=== PATIENT | male | born 1985 | race Two or more races ===

== ENCOUNTER 2025-03-02 14:54 | Inpatient (IN) | payer MEDICAID, OTHER ==
[~2025-03-02] VITALS: Ht 170.2 cm; Wt 92.0 kg
--- NOTE | 2025-03-02 15:17 | ED.PDOC ---
History of Present Illness HPI Comments 40-year-old male presents with a chief complaint of abdominal pain x 5 hours with associated urinary retention. Patient states that his pain is localized to his diffuse abdomen, nonradiating, rates his pain a 7/10. Patient also reports that he has been unable to urinate for the past 5 hours. Chief Complaint: Urinary Time Seen by MD: 15:06 Reviewed Notes: Medications, Allergies Allergies: Coded Allergies: NO KNOWN ALLERGIES (Unverified , 03/02/25) Information Source: Patient Mode of Arrival: Ambulatory Severity: Moderate Timing: Hours Duration: Since onset Prehospital treatment: None Past Medical History PAST MEDICAL HISTORY: Denies Surgical History: Denies all surgeries Family History Family History: Reviewed,noncontributory to illness Social History Smoker: Non-Smoker Alcohol: Denies ETOH Use Drugs: Denies Drug Use Lives In: Home Constitutional: denies: chills, diaphoresis, fatigue, fever, malaise, sweats, weakness, others EENTM: denies: blurred vision, double vision, ear bleeding, ear discharge, ear drainage, ear pain, ear ringing, eye pain, eye redness, hearing loss, mouth pain, mouth swelling, nasal discharge, nose bleeding, nose congestion, nose pain, photophobia, tearing, throat pain, throat swelling, voice changes, others Respiratory: denies: cough, hemoptysis, orthopnea, SOB at rest, shortness of breath, SOB with excertion, stridor, wheezing, others Cardiovascular: denies: chest pain, dizzy spells, diaphoresis, Dyspnea on exertion, edema, irregular heart beat, left arm pain, lightheadedness, palpitations, PND, syncope, others Gastrointestinal: reports: abdominal pain; denies: abdomen distended, blood streaked bowels, constipated, diarrhea, dysphagia, difficulty swallowing, hematemesis, melena, nausea, poor appetite, poor fluid intake, rectal bleeding, rectal pain, vomiting, others Genitourinary: reports: others (URINARY RETENTION); denies: burning, dysuria, flank pain, frequency, hematuria, incontinence, penile discharge, penile sore, pain, testicle pain, testicle swelling, urgency Neurological: denies: dizziness, fainting, headache, left sided numbness, left sided weakness, numbness, paresthesia, pre-existing deficit, right sided numbness, right sided weakness, seizure, speech problems, tingling, tremors, w eakness, others Musculoskeletal: denies: back pain, gout, joint pain, joint swelling, muscle pain, muscle stiffness, neck pain, others Integumetry: denies: bruises, change in color, change in hair/nails, dryness, laceration, lesions, lumps, rash, wounds, others Allergic/Immunocompromised: denies: Difficulty Healing, Frequent Infections, Hives, Itching, others Hematologic/Lymphatic: denies: anemia, blood clots, easy bleeding, easy bruising, swollen glands, others Endocrine: denies: excessive hunger, excessive sweating, excessive thirst, excessive urination, flushing, intolerance to cold, intolerance to heat, unexplained weight gain, unexplained weight loss, others Psychiatric: denies: anxiety, bipolar disorder, depression, hopeless, panic disorder, schizophrenia, sleepless, suicidal, others All Other Systems: Reviewed and Negative Physical Exam General Appearance: Moderate Distress, Normal HEENT: Normal ENT Inspection, Pharynx Normal, TMs Normal Neck: Full Range of Motion, Non-Tender, Normal, Normal Inspection Respiratory: Chest Non-Tender, Lungs Clear, No Accessory Muscle Use, No Respiratory Distress, Normal Breath Sounds Cardiovascular: No Edema, No JVD, No Murmur, No Gallop, Normal Peripheral Pulses, Regular Rate/Rhythm Breast Exam: Deferred Gastrointestinal: No Organomegaly, Non Tender, No Pulsatile Mass, Normal Bowel Sounds, Soft Genitalia: Deferred Pelvic: Deferred Rectal: Deferred Extremities: No calf tenderness, Normal capillary refill, Normal inspection, Normal range of motion, Non-tender, No pedal edema Musculoskeletal : Apperance: Normal Neurologic: Alert, senior administrative support II-XII nml as Tested, No Motor Deficits, Normal Affect, Normal Mood, No Sensory Deficits Cerebellar Function: Normal Reflexes: Normal Skin: Dry, Normal Color, Warm Peripheral Pulses: 3+ Radial (R), 3+ Radial (L) Lymphatic: No Adenopathy Was a procedure done? Was a procedure done?: No Differential Dx Considerations may include: Kidney stone Electrolyte imbalance X-Ray, Labs, Meds, VS Vital Signs Date Time Temp Pulse Resp B/P (MAP) Pulse Ox O2 Delivery O2 Flow Rate FiO2 03/02/25 16:02 Room Air* 0 21 03/02/25 16:00 98.3 64 17 144/75 (98) 96 98.3 03/02/25 14:56 98.2 62 16 137/79 100 98.2 Lab Test 03/02/25 15:07 03/02/25 14:56 Range/Units White Blood Count 5.9 4.4-10.8 10^3/uL Red Blood Count 5.37 4.5-5.90 10^6/uL Hemoglobin 16.2 13.5-17.5 g/dL Hematocrit 45.5 41.0-53.0 % Mean Corpuscular Volume 84.8 80.0-100.0 fL Mean Corpuscular Hemoglobin 30.2 28.0-32.0 pg Mean Corpuscular Hemoglobin Concent 35.7 32.0-36.0 g/dL Red Cell Distribution Width 13.1 11.8-14.3 % Platelet Count 249 140-450 10^3/uL Mean Platelet Volume 7.3 6.9-10.8 fL Neutrophils (%) (Auto) 64.7 37.0-80.0 % Lymphocytes (%) (Auto) 26.0 10.0-50.0 % Monocytes (%) (Auto) 7.3 0.0-12.0 % Eosinophils (%) (Auto) 1.7 0.0-7.0 % Basophils (%) (Auto) 0.3 0.0-2.0 % Neutrophils # (Auto) 3.8 1.6-8.6 10 ^3/uL Lymphocytes # (Auto) 1.5 0.4-5.4 10 ^3/uL Monocytes # (Auto) 0.4 0-1.3 10 ^3/uL Eosinophils # (Auto) 0.1 0-0.8 10 ^3/uL Basophils # (Auto) 0 0-0.2 10 ^3/uL Nucleated Red Blood Cells 0.1 % Sodium Level 139 136-145 mmol/L Potassium Level 3.8 3.5-5.1 mmol/L Chloride Level 104 98-107 mmol/L Carbon Dioxide Level 25 20-31 mmol/L Anion Gap 10 5-15 Blood Urea Nitrogen 9 9-23 mg/dL Creatinine 1.17 0.700-1.30 mg/dL Glomerular Filtration Rate Calc 82 >90 mL/min BUN/Creatinine Ratio 7.7 L 10.0-20.0 Serum Glucose 112 H 74-106 mg/dL Calcium Level 9.0 8.7-10.4 mg/dL Urine Opiates Screen Neg NEGATIVE Urine Fentanyl Screen Neg NEGATIVE Urine Barbiturates Screen Neg NEGATIVE Urine Phencyclidine Screen Neg NEGATIVE Urine Amphetamines Screen Neg NEGATIVE Urine Benzodiazepines Screen Neg NEGATIVE Urine Cocaine Screen Neg NEGATIVE Urine Cannabinoids Screen Neg NEGATIVE Current Medications Medications (Trade) Dose Ordered Sig/Falguni Route Start Time Stop Time Status Last Admin Ketorolac Tromethamine (Toradol Injection) 30 mg ONCE ONCE IV 03/02/25 15:30 03/02/25 15:31 DC 03/02/25 16:00 Sodium Chloride 1,000 ml @ 1,000 mls/hr Q1H ONCE IV 03/02/25 15:30 03/02/25 16:29 DC 03/02/25 16:00 Tamsulosin HCl (Flomax) 0.4 mg ONCE ONCE PO 03/02/25 16:30 03/02/25 16:31 DC 03/02/25 16:36 Patient alert. Complaining of flank pain. Vitals stable. Answering questions. Possible kidney stone. Establish intravenous access. Was given fluids. Was given pain medication. CT scan of the abdomen reviewed does show a kidney stone. Explained to the patient. Continue monitoring. Time of 1ST Reevaluation: 15:36 Reevaluation 1ST: Unchanged Patient Education/Counseling: Diagnosis, Treatment, Need For Follow Up Family Education/Counseling: No Family Present SEPSIS Sepsis Screen Date sepsis recognized/suspect: Mar 02, 2025 Time Sepsis recognized/suspect: 1458 Recent Procedure: No On Antibiotic Therapy: No Respiratory Rate >20: No Heart Rate >90: No Temp<36 C (96.8 F) or >38.3 C: No SBP <90 or MAP <65 mmHG: No New Acute Mental Status Change: No Is the patient on CPAP, BIPAP,: No Physician Orders Ct Ab Pel Wo Con-No Oral Or Iv (03/02/25 15:12) Vital Signs Date Time Temp Pulse Resp B/P (MAP) Pulse Ox O2 Delivery O2 Flow Rate FiO2 03/02/25 16:02 Room Air* 0 21 03/02/25 16:00 98.3 64 17 144/75 (98) 96 98.3 03/02/25 14:56 98.2 62 16 137/79 100 98.2 Laboratory Tests Test 03/02/25 15:07 White Blood Count 5.9 10^3/uL (4.4-10.8) Medications Medications Dose Ordered Sig/Falguin Route Start Time Stop Time Status Last Admin Dose Admin Ketorolac Tromethamine 30 mg ONCE ONCE IV 03/02/25 15:30 03/02/25 15:31 DC 03/02/25 16:00 Sodium Chloride 1,000 ml @ 1,000 mls/hr Q1H ONCE IV 03/02/25 15:30 03/02/25 16:29 DC 03/02/25 16:00 Tamsulosin HCl 0.4 mg ONCE ONCE PO 03/02/25 16:30 03/02/25 16:31 DC 03/02/25 16:36 Departure 1 Departure Time of Disposition: 15:19 Impression: Primary Impression: Acute abdominal pain Additional Impressions: Kidney stone Hydronephrosis Qualified Codes: N13.2 - Hydronephrosis with renal and ureteral calculous obstruction Disposition: ADMITTED INPATIENT Admit to: Med Surg Condition: Guarded Critical Care Note Critical Care Time?: No Stability Stability form required: No Heart Score Heart Score: Heart Score Response (Comments) Value History N/A 0 EKG N/A 0 Age N/A 0 Risk Factors N/A 0 Troponin N/A 0 Total 0 I personally scribed for SONU NAVA MD ([email or web address]) on 03/02/25 at 15:17. Electronically submitted by Yuri Ramachandran ([email or web address]). SONU NAVA MD Mar 02, 2025 15:17
[2025-03-02 15:23] LABS: Chloride 104 mmol/L (98-107); Hematocrit 45.5 % (41.0-53.0); Hemoglobin 16.2 g/dL (13.5-17.5); Mean Corpuscular Hemoglobin 30.2 pg (28.0-32.0); Mean Corpuscular Volume 84.8 fL (80.0-100.0); Nucleated Red Blood Cells % 0.1 %; Potassium 3.8 mmol/L (3.5-5.1); Sodium 139 mmol/L (136-145)
[2025-03-02 15:24] LABS: Anion Gap 10 (5-15); Calcium 9.0 mg/dL (8.7-10.4); Carbon Dioxide 25 mmol/L (20-31)
[2025-03-02 15:29] LABS: BUN/Creatinine Ratio 7.7 (10.0-20.0)
[2025-03-02 15:36] LABS: Blood Urea Nitrogen 9 mg/dL (9-23); Glucose 112 mg/dL (74-106)
--- NOTE | 2025-03-02 15:51 | DVH ---
Exam: CT CT AB PEL WO CON-NO ORAL OR IV History: stone Comparison Study: None TECHNIQUE: Multidetector CT of the abdomen was performed from lung bases to pubic symphysis. Imaging was performed without IV contrast. Axial, coronal and sagittal multiplanar reformats were obtained fr om the axial data set by the technologist. Radiation Dose Information: CT Dose: CTDI volume is 13.9 mGy. Dose-length product is 747 mGy*cm FINDINGS: Evaluation of solid organs is limited due to lack of intravenous contrast use. Findings: Lung Bases: No acute or significant lung base finding. Normal heart size. No pleural or pericardial effusion. Liver: The liver is normal in size. No focal lesions. Gallbladder and Biliary Tree: Unremarkable Spleen: Unremarkable Pancreas: The pancreas is grossly normal in appearance. Adrenal Glands: Unremarkable Kidneys: The there is [id number] left-sided hydronephrosis and hydroureter with a 4 mm obstruct ing calculus present at the left UVJ. Bladder: Grossly unremarkable for degree of distention. Bowel: The stomach is grossly normal in appearance. Small bowel and colon are normal in caliber and d istribution. The appendix is not visualized; however, no secondary findings of acute appendicitis id entified. Ascites: Absent Lymphadenopathy: No mesenteric, retroperitoneal or periportal lymphadenopathy. Abdominal Wall and Mesentery: Unremarkable. Vasculature: The visualized abdominal aorta is normal in size and caliber. Evaluation of abdominal a nd pelvic vessels is limited due to lack of intravenous contrast. Pelvic Organs: Unremarkable Musculoskeletal: No aggressive focal bony lesions, acute fractures or dislocation. Soft tissues: Unremarkable IMPRESSION: 1. Mild to moderate left-sided hydronephrosis and hydroureter with a 4 mm obstructing calculus presen t at the left UVJ 2. Radiation optimization: All CT scans at this facility use at least one of these dose optimization techniques: automated exposure control mA and/or kV adjustment per patient size (includes targeted e xams where dose is matched to clinical indication) or iterative reconstruction.
[2025-03-02] MEDS: KETOROLAC TROMETH 30 MG/ML 1ML VIAL IV ONE (16:00)
[2025-03-02] MEDS: SODIUM CHLORIDE 0.9% 1,000 ML IV ONE (16:00)
[2025-03-02 16:29] LABS: Amphetamine Screen, Urine Neg (NEGATIVE); Barbiturate Scree,Urine Neg (NEGATIVE); Benzodiazephine Screen, Urine Neg (NEGATIVE); Cannabinoid Screen, Urine Neg (NEGATIVE); Cocaine Screen, Urine Neg (NEGATIVE); Opiate Scree,Urine Neg (NEGATIVE); Phencyclidine Screen, Urine Neg (NEGATIVE)
[2025-03-02] MEDS: TAMSULOSIN HYDROCHLORIDE 0.4 MG CAP PO ONE (16:36)
[2025-03-02] MEDS ORDERED: HYDROcodone-ACET 5/325MG TAB PO PRN (19:45)
[2025-03-02] MEDS ORDERED: ONDANSETRON HCL 4 MG/2 ML VIAL IV PRN (19:45)
[2025-03-02] MEDS ORDERED: MORPHINE SULFATE INJ 2 MG/ml SYRG IV PRN (19:45)
[2025-03-02] MEDS ORDERED: ACETAMINOPHEN 325 MG TAB PO PRN (19:45)
--- NOTE | 2025-03-02 21:47 | DVHHP2 ---
History of Present Illness Reason for Visit: Flank pain History of Present Illness 40-year-old male presents for evaluation of flank pain. Patient endorses a one day history of left-sided flank pain . Patient reports some nausea with chills. Patient was unable to urinate until he arrived to the emergency department. Past Medical History Denies Past Surgical History Denies Family History Noncontributory Smoke: No ALCOHOL: none Drugs: None Lives: with Family Review of Systems Review of Systems Review of systems are currently negative otherwise addressed in HPI. Allergies: Coded Allergies: NO KNOWN ALLERGIES (Unverified , 03/02/25) Medications Current Medications Medications Dose Ordered Sig/Falguni Route Start Time Stop Time Status Last Admin Dose Admin Acetaminophen/ Hydrocodone Bitart 1 tab Q4HP PRN PO 03/02/25 19:45 Ondansetron HCl 4 mg Q4HP PRN IV 03/02/25 19:45 Acetaminophen 650 mg Q6HP PRN PO 03/02/25 19:45 Morphine Sulfate 2 mg Q6HPRN PRN IV 03/02/25 19:45 Exam Vital Signs Vital Signs Date Time Temp Pulse Resp B/P (MAP) Pulse Ox O2 Delivery O2 Flow Rate FiO2 03/02/25 20:25 98.4 63 14 114/84 (94) 98 98.4 03/02/25 18:34 Room Air 03/02/25 16:02 0 21 Exam Gen: 40-year-old male in mild distress. Skin: Warm, dry, normal color and texture, no rash. HEENT: Normocephalic atraumatic, mucous membranes moist and pink. Neck: Cervical and supraclavicular nodes normal without enlargement, trachea is midline, thyroid gland is normal without masses. Pulmonary: Clear to auscultation and percussion bilaterally. Cardiac: Regular rate and rhythm. No murmur Abdomen: Soft, left flank tenderness, nondistended, bowel sounds present all 4 quadrants, no guarding, no rigidity, no organomegaly. Extremities: No cyanosis, clubbing, no edema Neuro: Cranial nerves II through XII grossly intact, normal affect and speech, no focal motor deficits. Labs/Xrays ORDERING PHYSICIAN: SONU NAVA MD PROCEDURE(s): ABPL - CT AB PEL WO CON-NO ORAL OR IV REASON: stone ORDER NUMBER(s): [id number], ACCESSION NUMBER(s): [id number] Exam: CT CT AB PEL WO CON-NO ORAL OR IV History: stone Comparison Study: None TECHNIQUE: Multidetector CT of the abdomen was performed from lung bases to pubic symphysis. Imaging was performed without IV contrast. Axial, coronal and sagittal multiplanar reformats were obtained from the axial data set by the technologist. Radiation Dose Information: CT Dose: CTDI volume is 13.9 mGy. Dose-length product is 747 mGy*cm FINDINGS: Evaluation of solid organs is limited due to lack of intravenous contrast use. Findings: Lung Bases: No acute or significant lung base finding. Normal heart size. No pleural or pericardial effusion. Liver: The liver is normal in size. No focal lesions. Gallbladder and Biliary Tree: Unremarkable Spleen: Unremarkable Pancreas: The pancreas is grossly normal in appearance. Adrenal Glands: Unremarkable Kidneys: The there is [id number] left-sided hydronephrosis and hydroureter with a 4 mm obstructing calculus present at the left UVJ. Bladder: Grossly unremarkable for degree of distention. Bowel: The stomach is grossly normal in appearance. Small bowel and colon are normal in caliber and distribution. The appendix is not visualized; however, no secondary findings of acute appendicitis identified. Ascites: Absent Lymphadenopathy: No mesenteric, retroperitoneal or periportal lymphadenopathy. Abdominal Wall and Mesentery: Unremarkable. Vasculature: The visualized abdominal aorta is normal in size and caliber. Evaluation of abdominal and pelvic vessels is limited due to lack of intravenous contrast. Pelvic Organs: Unremarkable Musculoskeletal: No aggressive focal bony lesions, acute fractures or dislocation. Soft tissues: Unremarkable IMPRESSION: 1. Mild to moderate left-sided hydronephrosis and hydroureter with a 4 mm obstructing calculus present at the left UVJ 2. Radiation optimization: All CT scans at this facility use at least one of these dose optimization techniques: automated exposure control mA and/or kV adjustment per patient size (includes targeted exams where dose is matched to clinical indication) or iterative reconstruction. Labs Test 03/02/25 15:07 03/02/25 14:56 Range/Units White Blood Count 5.9 4.4-10.8 10^3/uL Red Blood Count 5.37 4.5-5.90 10^6/uL Hemoglobin 16.2 13.5-17.5 g/dL Hematocrit 45.5 41.0-53.0 % Mean Corpuscular Volume 84.8 80.0-100.0 fL Mean Corpuscular Hemoglobin 30.2 28.0-32.0 pg Mean Corpuscular Hemoglobin Concent 35.7 32.0-36.0 g/dL Red Cell Distribution Width 13.1 11.8-14.3 % Platelet Count 249 140-450 10^3/uL Mean Platelet Volume 7.3 6.9-10.8 fL Neutrophils (%) (Auto) 64.7 37.0-80.0 % Lymphocytes (%) (Auto) 26.0 10.0-50.0 % Monocytes (%) (Auto) 7.3 0.0-12.0 % Eosinophils (%) (Auto) 1.7 0.0-7.0 % Basophils (%) (Auto) 0.3 0.0-2.0 % Neutrophils # (Auto) 3.8 1.6-8.6 10 ^3/uL Lymphocytes # (Auto) 1.5 0.4-5.4 10 ^3/uL Monocytes # (Auto) 0.4 0-1.3 10 ^3/uL Eosinophils # (Auto) 0.1 0-0.8 10 ^3/uL Basophils # (Auto) 0 0-0.2 10 ^3/uL Nucleated Red Blood Cells 0.1 % Sodium Level 139 136-145 mmol/L Potassium Level 3.8 3.5-5.1 mmol/L Chloride Level 104 98-107 mmol/L Carbon Dioxide Level 25 20-31 mmol/L Anion Gap 10 5-15 Blood Urea Nitrogen 9 9-23 mg/dL Creatinine 1.17 0.700-1.30 mg/dL Glomerular Filtration Rate Calc 82 >90 mL/min BUN/Creatinine Ratio 7.7 L 10.0-20.0 Serum Glucose 112 H 74-106 mg/dL Calcium Level 9.0 8.7-10.4 mg/dL Urine Opiates Screen Neg NEGATIVE Urine Fentanyl Screen Neg NEGATIVE Urine Barbiturates Screen Neg NEGATIVE Urine Phencyclidine Screen Neg NEGATIVE Urine Amphetamines Screen Neg NEGATIVE Urine Benzodiazepines Screen Neg NEGATIVE Urine Cocaine Screen Neg NEGATIVE Urine Cannabinoids Screen Neg NEGATIVE SEPSIS Sepsis Screen Date sepsis recognized/suspect: Mar 02, 2025 Time Sepsis recognized/suspect: 1600 Recent Procedure: No On Antibiotic Therapy: No Respiratory Rate >20: No Heart Rate >90: No Temp<36 C (96.8 F) or >38.3 C: No SBP <90 or MAP <65 mmHG: No New Acute Mental Status Change: No Is the patient on CPAP, BIPAP,: No Physician Orders Ct Ab Pel Wo Con-No Oral Or Iv (03/02/25 15:12) * Urology Consult (03/02/25 19:31) Regular Diet (03/03/25 Breakfast) Basic Metabolic Panel (03/03/25 04:00) Admit (03/02/25:31) Hydrocodone-Acet 5/325mg Tab ([place] 5/32 (03/02/25 19:45) Ondansetron Hcl (Zofran) (03/02/25 19:45) Complete Blood Count (03/03/25 04:00) Condition: Stable (03/02/25:31) Acetaminophen Tablet (Tylenol Tablet) (03/02/25 19:45) Bedrest With Bathroom Privileg (03/02/25 19:31) Morphine Sulfate Injection (03/02/25 19:45) Vital Signs Date Time Temp Pulse Resp B/P (MAP) Pulse Ox O2 Delivery O2 Flow Rate FiO2 03/02/25 20:25 98.4 63 14 114/84 (94) 98 98.4 03/02/25 18:34 64 20 96 Room Air 03/02/25 16:02 Room Air* 0 21 03/02/25 16:00 98.3 64 17 144/75 (98) 96 98.3 03/02/25 14:56 98.2 62 16 137/79 100 98.2 Laboratory Tests Test 03/02/25 15:07 White Blood Count 5.9 10^3/uL (4.4-10.8) Medications Medications Dose Ordered Sig/Falguni Route Start Time Stop Time Status Last Admin Dose Admin Ketorolac Tromethamine 30 mg ONCE ONCE IV 03/02/25 15:30 03/02/25 15:31 DC 03/02/25 16:00 30 MG Sodium Chloride 1,000 ml @ 1,000 mls/hr Q1H ONCE IV 03/02/25 15:30 9/21/25 16:29 DC 03/02/25 16:00 1,000 MLS/HR Tamsulosin HCl 0.4 mg ONCE ONCE PO 03/02/25 16:30 03/02/25 16:31 DC 03/02/25 16:36 0.4 MG Assessment/Plan Assessment/Plan Assessment Nephrolithiasis Left hydronephrosis Plan Admit the patient to [facility] to the hospitalist Nephrology consultation Pain management Flomax IV fluids Continue treatment per orders. Plan discussed with: Patient My Orders Orders - PAUL HAAS Procedure Category Date Status Time * Urology Consult CONS 03/02/25 Transmitted 19:31 Regular Diet DIET 03/03/25 Transmitted Breakfast Basic Metabolic Panel LAB 03/03/25 Verified 04:00 Admit ADMIT 03/02/25 Transmitted 19:31 Hydrocodone-Acet PHA 03/02/25 In Process 5/325mg Tab ([place] 19:45 Ondansetron Hcl PHA 03/02/25 In Process (Zofran) 19:45 Complete Blood Count LAB 03/03/25 Verified 04:00 Condition: Stable ARCHANA 03/02/25 In Process 19:31 Acetaminophen Tablet PHA 03/02/25 In Process (Tylenol Tablet) 19:45 Bedrest With Bathroom [place] 03/02/25 In Process Privileg 19:31 Morphine Sulfate PHA 03/02/25 In Process Injection 19:45 Date of Service: Mar 02, 2025 Billing Provider: PAUL HAAS Common Visit Codes: [id number] INP/OBS CARE (HIGH) PAUL HAAS Mar 02, 2025 21:47
[2025-03-02 23:18] VITALS: BP 124/77; PULSE 76; RESP 14; TEMP 98.9; O2SAT 98
== END 2025-03-02 23:40 | disposition home or self-care (01) | DRG 465 ==
LOC: ER 14:58 → OVERFLOW 19:31
PROVIDERS: ADMIT Nurse Practitioner; ATTEND Nurse Practitioner
DX: N13.2 Hydronephrosis with renal and ureteral calculous obstruction (principal)
CPT/HCPCS: 36415; 74176; 80048; 80307; 85025; 96374; G0378; J1885